=== PATIENT | female | born 1950 | race Caucasian/White ===

== ENCOUNTER → 2016-07-10 | Outpatient (CLI) | payer OTHER, BC | END | disposition home or self-care (01) | LOC: NUC 08:15 | DX: K31.84 Gastroparesis (principal); K59.00 Constipation, unspecified; Z86.010 Personal history of colon polyps; Z09 Encounter for follow-up examination after completed treatment for conditions other than malignant neoplasm; R93.3 Abnormal findings on diagnostic imaging of other parts of digestive tract | CPT/HCPCS: 78264; A9541 ==